=== PATIENT | female | born 1995 | race Caucasian/White ===

== ENCOUNTER 2017-09-21 09:44 | Day surgery (SDC) | payer OTHER ==
[~2017-09-21 09:44] MED LIST: CEFAZOLIN 2 GM/50 ML (PMX) 50 ML IVPB; LIDOCAINE 100 MG SYRINGE; SOD CHLORIDE 0.9% 1,000 ML IV
[2017-09-21 11:32] LABS: ADD MAN DIFF? NO
[2017-09-21 11:37] LABS: BASOPHIL # 0.1 10^3/ul (0.0-0.1); BASOPHILS % 0.9 % (0.0-2.0); EOSINOPHILS # 0.1 10^3/ul (0.0-0.5); HEMATOCRIT 39.7 % (37.0-47.0); HEMOGLOBIN 13.2 g/dl (12.0-16.0); LYMPHOCYTES % 21.8 % (15.0-51.0); MEAN CORPUSCULAR HEMOGLOBIN 29.8 pg (29.0-33.0); MEAN CORPUSCULAR HGB CONC 33.2 g/dl (32.0-37.0); MEAN CORPUSCULAR VOLUME 89.6 fl (82.0-101.0); MEAN PLATELET VOLUME 11.4 fl (7.4-10.4); MONOCYTE # 0.6 10^3/ul (0.3-0.9); MONOCYTES % 6.5 % (0.0-11.0); NEUTROPHIL # 6.5 10^3/ul (1.6-7.5); NEUTROPHILS % 69.5 % (39.0-77.0); PLATELET COUNT 264 10^3/UL (140-415); RED BLOOD COUNT 4.43 10^6/ul (4.20-5.40); RED CELL DISTRIBUTION WIDTH 12.3 % (11.5-14.5)
[2017-09-21 11:37] LABS: WHITE BLOOD COUNT 9.3 10^3/ul (4.8-10.8)
[2017-09-21 12:10] LABS: INR 0.96; PROTIME 12.9 Sec (11.9-14.9)
[2017-09-21 12:11] LABS: PARTIAL THROMBOPLASTIN TIME 30.2 Sec (25.0-35.0)
[2017-09-21 12:20] LABS: ALANINE AMINOTRANSFERASE 38 IU/L (13-69); ALBUMIN 4.5 g/dl (3.3-4.9); ALBUMIN/GLOBULIN RATIO 1.21; ALKALINE PHOSPHATASE 51 IU/L (42-121); ANION GAP 15 (8-16); ASPARTATE AMINO TRANSFERASE 25 IU/L (15-46); BILIRUBIN,INDIRECT 0.6 mg/dl (0-1.1); BILIRUBIN,TOTAL 0.6 mg/dl (0.2-1.3); CARBON DIOXIDE 24 mmol/L (21-31); CHLORIDE 108 mmol/L (97-110); GLUCOSE 83 mg/dl (70-220); TOTAL PROTEIN 8.2 g/dl (6.1-8.1)
[2017-09-21 12:22] LABS: BLOOD UREA NITROGEN 7 mg/dl (7-20); CALCIUM 9.8 mg/dl (8.4-10.2); CREATININE 0.52 mg/dl (0.44-1.00); POTASSIUM 3.8 mmol/L (3.5-5.1); SODIUM 143 mmol/L (135-144)
[2017-09-21] MEDS ORDERED: MIDAZOLAM 1 MG/ML 2 ML INJ ×2 (13:17→14:10)
[2017-09-21] MEDS ORDERED: ROCURONIUM 50 MG INJ (13:17)
[2017-09-21] MEDS ORDERED: PROPOFOL 20 ML (13:17)
[2017-09-21] MEDS ORDERED: FENTAnyl 50 MCG/ML VIAL ×2 (13:17→14:17)
[2017-09-21] MEDS ORDERED: CEFAZOLIN 1 GM INJ (13:42)
[2017-09-21] MEDS ORDERED: DEXAMETHASONE 4 MG/ML 1 ML INJ (13:42)
[2017-09-21] MEDS ORDERED: ONDANSETRON 4 MG INJ (13:42)
[2017-09-21] MEDS: BUPIVACAINE 0.5%/EPI (SDV) 30 ML INJ (14:00)
[2017-09-21] MEDS ORDERED: SUGAMMADEX SODIUM 200 MG/2 ML VIAL IV (14:01)
[2017-09-21] MEDS ORDERED: HYDROmorphONE (0.2 MG/ML) 10ML SYG IV ×2 (14:17→14:30)
[2017-09-21] MEDS ORDERED: DIPHENHYDRAMINE 50 MG INJ (14:19)
[2017-09-21] MEDS: DIPHENHYDRAMINE 50 MG INJ IV (14:27)
[2017-09-21] MEDS: MIDAZOLAM 1 MG/ML 2 ML INJ IV (14:27)
[2017-09-21] MEDS: HYDROmorphONE (0.2 MG/ML) 10ML SYG IV ×4 (14:27→15:05)
[2017-09-21] MEDS: FENTAnyl 50 MCG/ML VIAL IV (14:28)
[2017-09-21] MEDS ORDERED: OXYCODONE/ACETAMINOPHEN (5/325) TAB PO ×2 (14:30)
[2017-09-21] MEDS ORDERED: ONDANSETRON 4 MG INJ IV (14:30)
[2017-09-21] MEDS ORDERED: MEPERIDINE 25 MG INJ IV (14:30)
[2017-09-21] MEDS ORDERED: FENTAnyl 50 MCG/ML VIAL IV (14:30)
== END 2017-09-21 16:45 | disposition home or self-care (01) ==
LOC: SDS 09:44
DX: K60.3 Anal fistula (principal)
CPT/HCPCS: 46270; 80053; 85025; 85610; 85730